=== PATIENT | female | born 1985 | race American Indian/Alaskan Native ===

== ENCOUNTER 2018-02-06 21:27 | Emergency (ER) | payer SELFPAY ==
[2018-02-06 21:35] VITALS: BP 156/83
== END 2018-02-07 01:00 | disposition left against medical advice (07) ==
LOC: ED 21:27
DX: M79.645 Pain in left finger(s) (principal); Z53.21 Procedure and treatment not carried out due to patient leaving prior to being seen by health care provider
CPT/HCPCS: 36415; 81025; 84703